=== PATIENT | male | born 1970 | race Caucasian/White ===

== ENCOUNTER 2021-04-03 19:40 | Emergency (ER) | payer OTHER ==
[2021-04-03] MEDS ORDERED: CEPHALEXIN500 M1 PO (21:38)
[2021-04-03] MEDS ORDERED: HYDROCODON-ACE1 EAC4 PO (21:38)
[2021-04-03] MEDS ORDERED: BACTRIM DS TAB1 EACH PO (21:38)
== END 2021-04-03 21:50 | disposition home or self-care (01) ==
LOC: ER1 19:40
DX: S97.111A Crushing injury of right great toe, initial encounter (principal); S91.211A Laceration without foreign body of right great toe with damage to nail, initial encounter; Z23 Encounter for immunization; W23.0XXA Caught, crushed, jammed, or pinched between moving objects, initial encounter
CPT/HCPCS: 73630; 90471; 90715; 96374; 99283; J0690